=== PATIENT | male | born 1990 | race Caucasian/White ===

== ENCOUNTER 2018-08-29 15:52 | Emergency (ER) | payer OTHER ==
[2018-08-29 16:55] LABS: Basophils % (A) 1 %; Eosinophils # (A) 0.1 k/uL (0-0.7); Eosinophils % (A) 1 %; HCT 42.4 % (39.0-53.0); HGB 14.6 gm/dL (13.0-17.5); Lymphocytes # (A) 1.4 k/uL (1.0-4.8); Lymphocytes % (A) 28 %; MCH 29.9 pg (25.0-35.0); MCHC 34.4 g/dL (31.0-37.0); Mean Platelet Volume 6.6; Monocytes # (A) 0.3 k/uL (0-1.0); Monocytes % (A) 6 %; Neutrophils # (A) 3.2 k/uL (1.3-7.7); Neutrophils % (A) 63 %; Platelet Count 266 k/uL (150-450); RBC 4.87 m/uL (4.30-5.90); RDW 12.4 % (11.5-15.5)
[2018-08-29 16:58] LABS: INR 1.2 (<1.2); Partial Thromboplastin Time 25.3 sec (22.0-30.0); Prothrombin Time 11.3 sec (9.0-12.0)
[2018-08-29 16:59] LABS: ALT 66 U/L (21-72); AST 38 U/L (17-59); Albumin 4.7 g/dL (3.5-5.0); Alkaline Phosphatase 47 U/L (38-126); Amylase 56 U/L (30-110); Anion Gap 8 mmol/L; Blood Urea Nitrogen 14 mg/dL (9-20); Calcium 10.1 mg/dL (8.4-10.2); Carbon Dioxide 27 mmol/L (22-30); Chloride 104 mmol/L (98-107); Glucose 90 mg/dL (74-99); Lipase 155 U/L (23-300); Potassium 4.5 mmol/L (3.5-5.1); Sodium 139 mmol/L (137-145); Total Bilirubin 0.6 mg/dL (0.2-1.3); Total Protein 7.4 g/dL (6.3-8.2)
[2018-08-29 17:10] LABS: Creatine Kinase 45 U/L (55-170)
--- NOTE | 2018-08-29 17:19 | XR ---
EXAMINATION TYPE: XR chest 2V DATE OF EXAM: 08/29/2018 COMPARISON: NONE HISTORY: Chest pain TECHNIQUE: Frontal and lateral views of the chest are obtained. FINDINGS: Heart and mediastinum are normal. Lungs are clear. Diaphragm is normal. Bony thorax appear s normal. Pulmonary vascularity is normal. There is slight anterior wedging of a midthoracic vertebra that is probably developmental. IMPRESSION: Normal chest
[2018-08-29 17:22] LABS: Creatine Kinase MB 0.3 ng/mL (0.0-2.4); Troponin I <0.012 ng/mL (0.000-0.034)
[2018-08-29] MEDS ORDERED: ONDANSETRON ODT 4 MG TAB PO STA (17:31)
[2018-08-29] MEDS ORDERED: ONDANSETRON 4 MG/2 ML VIAL IVP STA (17:55)
[2018-08-29 18:04] VITALS: PULSE 78
--- NOTE | 2018-08-29 18:22 | ED ---
Chest Pain HPI - General Chief Complaint: Chest Pain Stated Complaint: Nausea/chest pain Time Seen by Provider: 08/29/18 16:17 Source: patient Mode of arrival: ambulatory Limitations: no limitations - History of Present Illness Initial Comments: 28-year-old male past history of Crohn's disease presenting today for chief complaint of left-sided chest discomfort and nausea 3 weeks. Patient states that he has had chronic nausea for 12 years since his diagnosis Crohn's, he states that he feels as though as been increasing for the past 3 weeks. Patient denies any vomiting, emesis, melena, hematochezia. Patient denies any diarrhea he states he had a formed bowel movement at 2 PM this afternoon. Patient admits to dull abdominal pain however he states that he has chronic abdominal pain he denies any significant changes in his pain today. Patient states that for the past few weeks he has had acid reflux and was started on omeprazole by Dr. Kauffman who he saw on the 07 of August. Patient states that this sensation would come and go usually with meals and the pain was in his chest. Patient states that this sensation has been increasing for the past few days and he was concerned when it felt more constant so he presented today for evaluation. He denies a pattern with ambulation. But does note that seems to happen most with consumption of food. Upon arrival patient's vital signs stable. Patient appears well, nontoxic and in no acute distress. As a dyspnea , dyspnea on exertion, headache, dizziness, visual changes, upper extremity paresthesias, lower extremity edema, jaw pain, back pain, syncope, hemoptysis, calf pain, recent travel, history of cancer, history of blood clot, recent surgery or any other associated symptoms. - Related Data Home Medications Medication Instructions Recorded Confirmed ALPRAZolam [Xanax] 0.5 mg PO BID PRN 08/29/18 08/29/18 Acetaminophen Tab [Tylenol Tab] 500 - 1,000 mg PO Q6HR PRN 08/29/18 08/29/18 Adalimumab [Humira Pen] 40 mg SQ Q14D 08/29/18 08/29/18 Ascorbic Acid [Vitamin C] 500 mg PO DAILY 08/29/18 08/29/18 Calc/Mag/Zin/D 1 tab PO DAILY 08/29/18 08/29/18 Calcium Carbonate [Tums] 500 mg PO TID PRN 08/29/18 08/29/18 Cholecalciferol (Vitamin D3) 2,000 unit PO DAILY 08/29/18 08/29/18 [Vitamin D3] Cholestyramine (with Sugar) 2 - 4 gm PO DAILY PRN 08/29/18 08/29/18 [Questran] Cyanocobalamin (Vitamin B-12) 1,000 mcg PO DAILY 08/29/18 08/29/18 [Vitamin B-12] Hydrocortisone Cream 1 applic TOPICAL QID PRN 08/29/18 08/29/18 [Hydrocortisone 2.5% Cream] Loratadine [Claritin] 10 mg PO DAILY PRN 08/29/18 08/29/18 Multivitamin [Multivitamins Adult 1 tab PO DAILY 08/29/18 08/29/18 Gummies] Omeprazole 20 mg PO DAILY 08/29/18 08/29/18 Prochlorperazine [Compazine] 5 mg PO BID PRN 08/29/18 08/29/18 Allergies Allergy/AdvReac Type Severity Reaction Status Date / Time amoxicillin Allergy Rash/Hives Verified 08/29/18 16:51 clindamycin [From Cleocin] Allergy Rash/Hives Verified 08/29/18 16:51 mesalamine [From Pentasa] Allergy Unknown Verified 08/29/18 16:51 trazodone Allergy Anaphylaxis Verified 08/29/18 16:51 azithromycin AdvReac Nausea & Verified 08/29/18 16:51 Vomiting Review of Systems ROS Statement: Those systems with pertinent positive or pertinent negative responses have been documented in the HPI. ROS Other: All systems not noted in ROS Statement are negative. Constitutional: Denies: fever, chills, night sweats ENT: Denies: ear pain, throat pain Respiratory: Denies: cough, dyspnea, wheezes, hemoptysis, stridor Cardiovascular: Reports: chest pain. Denies: palpitations, dyspnea on exertion , orthopnea, edema Endocrine: Denies: fatigue Gastrointestinal: Reports: abdominal pain (Chronic abdominal pain), nausea ( Chronic nausea with increased 3 weeks), diarrhea (On-and-off due to Crohn's disease). Denies: vomiting, constipation, hematemesis, melena, hematochezia Genitourinary: Denies: urgency, dysuria Musculoskeletal: Denies: back pain Skin: Denies: rash, lesions Neurological: Denies: headache, weakness, numbness, paresthesias, confusion EKG Findings - EKG Comments: EKG Findings:: A 12-lead EKG was performed and shows the following: Rate is 85, and rhythm is normal sinus. There are normal QRS complexes and normal R-wave progression. ST segments have no elevation or depression, and AZ segments appear normal. AZ interval 136ms, QRS ratio 86 ms, QT/QTC 342/406 ms. There are no changes concerning forACS, normal EKG. Past Medical History Past Medical History: GERD/Reflux Additional Past Medical History / Comment(s): chrones History of Any Multi-Drug Resistant Organisms: None Reported Past Surgical History: Bowel Resection Past Psychological History: No Psychological Hx Reported Smoking Status: Never smoker Past Alcohol Use History: None Reported Past Drug Use History: None Reported General Exam - General Exam Comments Initial Comments: General: The patient is awake and alert, in no distress, and does not appear acutely ill. Eye: Pupils are equal, round and reactive to light, extra-ocular movements are intact. No nystagmus. There is normal conjunctiva bilaterally. No signs of icterus. Ears, nose, mouth and throat: There are moist mucous membranes and no oral lesions. Neck: The neck is supple, there is no tenderness or JVD. Cardiovascular: There is a regular rate and rhythm. No murmur, rub or gallop is appreciated. Respiratory: Lungs are clear to auscultation, respirations are non-labored, breath sounds are equal. No wheezes, stridor, rales, or rhonchi. No friction rubs. Gastrointestinal: No noted diaphoresis, jaundice, pallor, protecting postures or squirming. Symmetrical pigmentation of abdomen without signs of inflammation, or striae. Scar midline just inferior to umbilicus. Umbilicus mildline, inverted without swelling. No dilated veins. Abdomen contour Point, no noted abdominal distention. No visible masses. No peristalsis, aortic pulsations, or ventral hernia. Bowel sounds audible in all 4 quadrants, unremarkable. Mild diffuse tenderness to deep palpation. No tenderness to light palpation-no rigidity, guarding or protective posturing.. Liver edge, not palpable. Spleen edge, right and left kidney not palpable. Superior bladder margin non-tender. Special Testing: Negative [place], Rovsing, McBurney, [place], cutaneous hyperesthesia. Negative Heel Jar test/popeye sign. No CVA tenderness. Digital rectal exam skin tag midline at 12 o'clock position, no palpable hemorroid or gross red blood. Negative null turners or cullens sign Musculoskeletal: Normal ROM, no tenderness. Strength 5/5. Sensation intact. DP and radial pulses equal bilaterally 2+. Neurological: A&O x 3. CN II-XII intact, There are no obvious motor or sensory deficits. Coordination appears grossly intact. Speech is normal. Skin: Skin is warm and dry and no rashes or lesions are noted. Negative Homans , no pain to palpation along the deep venous system. Psychiatric: Cooperative, appropriate mood & affect, normal judgment. Limitations: no limitations Course Vital Signs 08/29/18 08/29/18 08/29/18 16:03 16:15 18:04 Temperature 98.6 F Pulse Rate 103 H 78 Pulse Rate [ 88 [employer] ] Respiratory 18 18 Rate Blood Pressure 128/87 120/77 O2 Sat by Pulse 98 98 Oximetry 08/29/18 19:02 Temperature 97.7 F Pulse Rate 78 Pulse Rate [ [employer]ic ] Respiratory 14 Rate Blood Pressure 126/77 O2 Sat by Pulse 99 Oximetry Chest Pain MDM - MDM Heart score 0. Patient is in no acute distress, cardiac profile negative, troponins negative, EKG within normal limits. Disposition Clinical Impression: Nausea, Non-cardiac chest pain Disposition: HOME SELF-CARE Condition: Good Instructions: Chest Pain (ED) Additional Instructions: Please use medication as discussed. Please follow-up with Dr Kauffman in the next 1 -2 days. Please return to emergency room if the symptoms increase or worsen or for any other concerns. Referrals: Bryanna Herman MD [Primary Care Provider] - 1-2 days Maulik Kauffman MD [STAFF PHYSICIAN] - 1-2 days Time of Disposition: 18:21
[2018-08-29 19:03] VITALS: BP 126/77; RESP 14; TEMP 97.7
== END 2018-08-29 19:00 | disposition home or self-care (01) ==
LOC: EC 15:52
DX: R07.9 Chest pain, unspecified (principal); R11.0 Nausea; R10.9 Unspecified abdominal pain; K21.9 Gastro-esophageal reflux disease without esophagitis; K50.90 Crohn's disease, unspecified, without complications; Z98.890 Other specified postprocedural states; Z79.899 Other long term (current) drug therapy; Z88.0 Allergy status to penicillin; Z88.1 Allergy status to other antibiotic agents; Z88.8 Allergy status to other drugs, medicaments and biological substances
CPT/HCPCS: 36415; 93005; 80053; 82150; 82550; 82553; 83690; 83735; 84484; 85025; 85610; 85730; 82272; 71046; 99285; 96374; J2405

== ENCOUNTER 2018-09-24 08:23 | Day surgery (SDC) | payer OTHER ==
[2018-09-18 15:21] VITALS: BMI 18.1
[~2018-09-24 08:23] MED LIST: LACTATED RINGERS 1,000 ML IV SCH
[2018-09-24 09:16] VITALS: RESP 16; TEMP 98
[2018-09-24] MEDS ORDERED: LIDOCAINE 1% 20 ML VIAL (10MG/ML) FOR IV START INTRADERMA ONE (09:20)
[2018-09-24] MEDS ORDERED: PROPOFOL 10 MG/ML 20 ML VIAL IV ONE (11:09)
--- NOTE | 2018-09-24 11:23 | P.PCN ---
Date of Procedure: 09/24/18 Procedure(s) Performed: Procedures: 1. Esophagogastroduodenoscopy and biopsy. 2. Colonoscopy and biopsy. Preoperative diagnosis: 1. Reflux symptoms, nausea and atypical chest pain. 2. History of Crohn's ileocolitis on biologic therapy. Postoperative diagnosis: 1. Small sliding hiatal hernia with no obvious esophagitis or complicated reflux disease. 2. Mild antral gastritis. 3. S/P ileocecal resection with mild inflammatory changes around the anastomosis area. Preparation: HalfLytely prep. Sedation: Was provided by anesthesia. Brief clinical history: The patient is a 28-year-old male who was diagnosed with Crohn's ileocolitis at age 17 and required ileocolonic resection in 2008. He required biologic therapy with Remicade until February 2011 which he stopped and remained in remission off any medications until around October 2015. The patient was started on humira in the fall of 2016. The patient continues to have issues with nausea and chest discomfort and he feels that his symptoms has worsened recently and was in the emergency room August 29 for nausea and chest discomfort. He is on symptomatic treatment with Tums and Gas-X, Compazine and Zofran. Weight stable. Stools variable in consistency and his last colonoscopy was in October 2015. This evaluation is to assess for the activity of his Crohn's disease and to rule out peptic ulcer disease complicated reflux disease or other pathology. Procedure: With the patient on his left lateral decubitus position and after informed consent and adequate sedation, I passed the Olympus-GIF 160 video upper endoscope through the cricopharyngeus down the esophagus. There was a small sliding hiatal hernia but no obvious esophagitis or complicated reflux disease. The endoscope was then passed into the stomach which was insufflated with air and inspected in detail including the retroflex view in the cardia. There was some mottling and erythema in the antrum but no ulcers or erosions. Pyloric channel, duodenal bulb, post bulbar area and descending duodenum appeared within normal limits. Because of his symptoms, I obtained biopsies from the duodenum, antrum and esophagus then the endoscope was withdrawn and I proceeded with the colonoscopy. Perianal area did not show any fissures or fistulas. There was prominent skin tags. No masses were felt on digital rectal examination or strictures. The Olympus CFH 190L video colonoscope was then inserted in the rectum in the usual fashion and advanced to the right colon. The area of the resection and anastomosis was noted. There were few small isolated aphthous-like ulcerations in the vicinity of the anastomosis on the small intestinal side, otherwise, the small intestine did not show any ulcers or stenosis. The colon appeared completely normal. I obtained biopsies from the uninvolved terminal ileum and I took biopsies of the aphthous ulcerations close to the anastomosis on the small intestinal side of the resection then I retroflexed the endoscope in the rectum before the endoscope was withdrawn. The patient tolerated the procedure well. Plan: I discussed the findings with the patient and his mother. Will await biopsy results and make further adjustments on his regimen. I will keep you updated on his progress.
[2018-09-24] MEDS ORDERED: ONDANSETRON 4 MG/2 ML VIAL IVP ONE (11:26)
[2018-09-24 11:31] VITALS: BP 124/79; PULSE 71
== END 2018-09-24 12:25 | disposition home or self-care (01) ==
LOC: ORWHC2ENDO 08:23
DX: K29.50 Unspecified chronic gastritis without bleeding (principal); K21.0 Gastro-esophageal reflux disease with esophagitis; R59.0 Localized enlarged lymph nodes; K44.9 Diaphragmatic hernia without obstruction or gangrene; K64.4 Residual hemorrhoidal skin tags; K91.89 Other postprocedural complications and disorders of digestive system; Y83.2 Surgical operation with anastomosis, bypass or graft as the cause of abnormal reaction of the patient, or of later complication, without mention of misadventure at the time of the procedure; Y92.9 Unspecified place or not applicable; K50.80 Crohn's disease of both small and large intestine without complications; K52.9 Noninfective gastroenteritis and colitis, unspecified; K63.3 Ulcer of intestine; Z90.49 Acquired absence of other specified parts of digestive tract; Z98.0 Intestinal bypass and anastomosis status; K21.9 Gastro-esophageal reflux disease without esophagitis; F41.9 Anxiety disorder, unspecified; F32.9 Major depressive disorder, single episode, unspecified; Z79.899 Other long term (current) drug therapy; Z88.1 Allergy status to other antibiotic agents; Z88.8 Allergy status to other drugs, medicaments and biological substances
CPT/HCPCS: 88305; 45380; 43239; J2405; J2704

== ENCOUNTER → 2019-10-18 | Outpatient (CLI) | payer OTHER ==
--- NOTE | 2019-10-18 09:21 | MR ---
EXAMINATION TYPE: MR brain wo/w con DATE OF EXAM: 10/18/2019 8:57 AM COMPARISON: None. HISTORY: Seizures TECHNIQUE: Multiplanar, multiecho imaging of the brain was obtained with and without intravenous adm inistration of 6 mL intravenous Gadavist. FINDINGS: Midline structures are unremarkable. There is a normal craniocervical junction. Echoplanar diffusion imaging is normal. There are normal vascular flow voids. The orbits are unremarkable. There is no evidence of a CP angle mass lesion. No acute focal lesion, mass effect or midline shift is seen. I do not see evidence of intracranial bl ood. Following intravenous administration of gadolinium, I do not see evidence of abnormal enhancement. IMPRESSION: NORMAL MRI OF THE BRAIN.
== END | disposition home or self-care (01) ==
LOC: RADMRIMAIN 08:01
PROVIDERS: ATTEND Psychiatry & Neurology Neurology
DX: R56.9 Unspecified convulsions (principal)
CPT/HCPCS: 70553; A9585

== ENCOUNTER → 2020-04-12 | Outpatient (CLI) | payer OTHER ==
[2020-04-12 13:06] LABS: Basophils % (A) 0 %; Eosinophils # (A) 0.1 k/uL (0-0.7); Eosinophils % (A) 1 %; HCT 46.6 % (39.0-53.0); HGB 15.8 gm/dL (13.0-17.5); Lymphocytes # (A) 1.4 k/uL (1.0-4.8); Lymphocytes % (A) 29 %; MCH 31.2 pg (25.0-35.0); MCHC 33.9 g/dL (31.0-37.0); Mean Platelet Volume 7.2; Monocytes # (A) 0.4 k/uL (0-1.0); Monocytes % (A) 8 %; Neutrophils # (A) 2.8 k/uL (1.3-7.7); Neutrophils % (A) 59 %; Platelet Count 255 k/uL (150-450); RBC 5.07 m/uL (4.30-5.90); RDW 12.2 % (11.5-15.5); WBC 4.8 k/uL (3.8-10.6)
[2020-04-12 20:37] LABS: African American GFR (CKD) 147.8 (60.0-200.0); Albumin/Globulin Ratio 2.27 (1.60-3.17); Anion Gap 9.2 mmol/L (4.00-12.00); BUN/Creat Ratio 18.57 Ratio (12.00-20.00); Calcium 9.9 mg/dL (8.7-10.3); Carbon Dioxide 28.8 mmol/L (21.6-31.8); Globulin 2.2 g/dL (1.6-3.3); Non-African American GFR(CKD) 127.5 (60.0-200.0); Potassium 4.2 mmol/L (3.5-5.5); Total Bilirubin 0.4 mg/dL (0.3-1.2); Total Protein 7.2 g/dL (6.2-8.2); Valproic Acid (Depakene) 24.9 ug/mL (50.0-100.0)
== END | disposition home or self-care (01) ==
LOC: LABWHC1 11:22
PROVIDERS: ATTEND Nurse Practitioner
DX: K50.90 Crohn's disease, unspecified, without complications (principal); R74.8 Abnormal levels of other serum enzymes; G40.209 Localization-related (focal) (partial) symptomatic epilepsy and epileptic syndromes with complex partial seizures, not intractable, without status epilepticus
CPT/HCPCS: 36415; 80053; 80164; 80165; 82140; 85025

== ENCOUNTER 2021-01-04 10:52 | Emergency (ER) | payer OTHER ==
[2021-01-04 11:28] VITALS: TEMP 98.3
[2021-01-04] MEDS ORDERED: ONDANSETRON 4 MG/2 ML VIAL IVP STA (11:45)
[2021-01-04] MEDS ORDERED: SODIUM CHLORIDE 0.9% 1,000 ML IV STA (11:45)
[2021-01-04] MEDS ORDERED: MORPHINE SULFATE 4 MG/ML SYRINGE IV STA (11:45)
[2021-01-04 12:05] LABS: Basophils % (A) 1 %; Eosinophils # (A) 0.1 k/uL (0-0.7); Eosinophils % (A) 2 %; HCT 45.5 % (39.0-53.0); HGB 16.2 gm/dL (13.0-17.5); Lymphocytes # (A) 2.3 k/uL (1.0-4.8); Lymphocytes % (A) 43 %; MCH 31.6 pg (25.0-35.0); MCHC 35.5 g/dL (31.0-37.0); MCV 88.8 fL (80.0-100.0); Mean Platelet Volume 7.2; Monocytes # (A) 0.4 k/uL (0-1.0); Monocytes % (A) 7 %; Neutrophils # (A) 2.5 k/uL (1.3-7.7); Neutrophils % (A) 46 %; Platelet Count 235 k/uL (150-450); RBC 5.12 m/uL (4.30-5.90); RDW 11.8 % (11.5-15.5); WBC 5.4 k/uL (3.8-10.6)
[2021-01-04 12:09] LABS: Appearance,Urine Clear (Clear); Bilirubin,Urine Negative (Negative); Blood,Urine Negative (Negative); Color,Urine Yellow; Glucose,Urine (UA) Negative (Negative); Hyaline Casts,Urine 1 /lpf (0-2); Ketones,Urine Negative (Negative); Leukocyte Esterase,Urine Negative (Negative); Mucus,Urine Many /hpf; Nitrite,Urine Negative (Negative); PH, Urine 5.5 (5.0-8.0); Protein,Urine 1+ (Negative); RBC,Urine <1 /hpf (0-5); Specific Gravity,Urine 1.028 (1.001-1.035); Squamous Epithelial Cell,Urine <1 /hpf (0-4); Urobilinogen,Urine <2.0 mg/dL (<2.0); WBC,Urine 1 /hpf (0-5)
[2021-01-04 12:15] LABS: ALT 67 U/L (4-49); AST 45 U/L (17-59); African American GFR (CKD) >90 (>60 ml/min/1.73 sqM); Albumin 4.8 g/dL (3.5-5.0); Alkaline Phosphatase 66 U/L (38-126); Amylase 56 U/L (30-110); Anion Gap 9 mmol/L; Blood Urea Nitrogen 10 mg/dL (9-20); Calcium 9.9 mg/dL (8.4-10.2); Carbon Dioxide 30 mmol/L (22-30); Chloride 100 mmol/L (98-107); Glucose 96 mg/dL (74-99); Lipase 284 U/L (23-300); Non-African American GFR(CKD) >90 (>60 ml/min/1.73 sqM); Potassium 3.7 mmol/L (3.5-5.1); Sodium 139 mmol/L (137-145); Total Bilirubin 0.4 mg/dL (0.2-1.3); Total Protein 7.5 g/dL (6.3-8.2)
--- NOTE | 2021-01-04 13:04 | CT ---
EXAMINATION TYPE: CT abdomen pelvis w con DATE OF EXAM: 01/04/2021 COMPARISON: None. HISTORY: Abdominal pain. H/O Crohn's disease and colitis CT DLP: 600.4 mGycm, Automated Exposure Control for Dose Reduction was Utilized. CONTRAST: CT scan of the abdomen and pelvis is performed without oral and with IV Contrast, patient injected wi th 100 ml mL of Isovue 300. FINDINGS: LUNG BASES: No significant abnormality is appreciated. LIVER/GB: No significant abnormality is appreciated. PANCREAS: No significant abnormality is seen. SPLEEN: No significant abnormality is seen. ADRENALS: No significant abnormality is seen. KIDNEYS: Symmetric cortical medullary uptake and excretion without hydronephrosis. BOWEL: Suboptimal evaluation of bowel without enteric contrast. Surgical sutures seen at level of cec um. Small bowel feces sign in the terminal ileum or neoterminal ileum. No suspicious wall thickening at this level. No suspicious small or large bowel dilatation. Findings consistent with delayed passag e of ingested material to colonic level. Mild to moderate wall thickening in the rectum is nonspecifi c favor product of poor distention. No significant mesenteric fluid and/or fat stranding or vasa engo rgement. PROSTATE/SEMINAL VESICLES: No gross abnormality seen. LYMPH NODES: No greater than 1cm abdominal or pelvic lymph nodes are appreciated. OSSEOUS STRUCTURES: No significant abnormality is seen. OTHER: No significant additional abnormality is seen. IMPRESSION: No bowel obstruction. No significant acute finding identified
[2021-01-04 13:22] VITALS: BP 124/84; PULSE 90; RESP 16
[2021-01-04] MEDS ORDERED: KETOROLAC 15 MG/ML 1 ML VIAL IVP STA (13:58)
[2021-01-04] MEDS ORDERED: methylPREDNISolone SOD SUCCI 125 MG/2 ML VIAL IV STA (13:58)
--- NOTE | 2021-01-04 13:59 | ED ---
General Adult HPI - General Chief complaint: Abdominal Pain Stated complaint: abd pain Source: patient, RN notes reviewed Mode of arrival: ambulatory - History of Present Illness Initial comments: 30-year-old male presents to the emergency room for abdominal pain. Patient states he has had right lower quadrant abdominal pain that radiates to his groin for the past 4 days. States he has had diarrhea as well with this. Denies any bloody or mucousy stool. Patient states she has had nausea vomiting on and off as well. States the first day he had vomiting but since then has only had nausea. Patient states history of Crohn's. He has not had any fevers at home.Patient has no other complaints at this time including shortness of breath, chest pain, nausea or vomiting, headache, or visual changes. - Related Data Home Medications Medication Instructions Recorded Confirmed Acetaminophen Tab [Tylenol Tab] 1,000 mg PO Q6HR PRN 08/29/18 01/04/21 Adalimumab [Humira Pen] 40 mg SQ Q14D 08/29/18 01/04/21 Ascorbic Acid [Vitamin C] 500 mg PO DAILY PRN 08/29/18 01/04/21 Cholecalciferol (Vitamin D3) 2,000 unit PO DAILY 08/29/18 01/04/21 [Vitamin D3] Cholestyramine (with Sugar) 4 gm PO DAILY PRN 08/29/18 01/04/21 [Questran] Hydrocortisone Cream 1 applic TOPICAL QID PRN 08/29/18 01/04/21 [Hydrocortisone 2.5% Cream] Loratadine [Claritin] 10 mg PO DAILY PRN 08/29/18 01/04/21 Omeprazole [PriLOSEC] 20 mg PO AC-BRKFST 09/18/18 01/04/21 Ondansetron [Zofran] 4 - 8 mg PO Q8H PRN 09/18/18 01/04/21 Dicyclomine [Bentyl] 10 mg PO TID PRN 01/04/21 01/04/21 Divalproex Sodium [Depakote] 500 mg PO HS 01/04/21 01/04/21 FLUoxetine HCL [PROzac] 20 mg PO DAILY 01/04/21 01/04/21 Methylphenidate HCl [Ritalin] 10 mg PO BID@0900,1400 01/04/21 01/04/21 Triamcinolone Acetonide [Nasacort] 1 spray EA NOSTRIL DAILY 01/04/21 01/04/21 Previous Rx's Medication Instructions Recorded predniSONE 50 mg PO DAILY #4 tablet 01/04/21 Allergies Allergy/AdvReac Type Severity Reaction Status Date / Time amoxicillin Allergy Rash/Hives Verified 01/04/21 13:19 clindamycin [From Cleocin] Allergy Rash/Hives Verified 01/04/21 13:19 mesalamine [From Pentasa] Allergy Unknown Verified 01/04/21 13:19 trazodone Allergy Anaphylaxis Verified 01/04/21 13:19 azithromycin AdvReac Nausea & Verified 01/04/21 13:19 Vomiting Review of Systems ROS Statement: Those systems with pertinent positive or pertinent negative responses have been documented in the HPI. ROS Other: All systems not noted in ROS Statement are negative. Past Medical History Past Medical History: GERD/Reflux Additional Past Medical History / Comment(s): chorn's/colitis History of Any Multi-Drug Resistant Organisms: None Reported Past Surgical History: Bowel Resection Past Anesthesia/Blood Transfusion Reactions: Previous Problems w/ Anesthesia Additional Past Anesthesia/Blood Transfusion Reaction / Comment(s): TAKES A LITTLE LONGER TO WAKE UP" Past Psychological History: Anxiety, Depression Smoking Status: Never smoker Past Alcohol Use History: None Reported Past Drug Use History: None Reported - Past Family History Father Family Medical History: Cancer General Exam General appearance: alert, in no apparent distress Head exam: Present: atraumatic, normocephalic, normal inspection Eye exam: Present: normal appearance, PERRL, EOMI. Absent: scleral icterus, conjunctival injection, periorbital swelling ENT exam: Present: normal exam, mucous membranes moist Neck exam: Present: normal inspection, full ROM. Absent: tenderness, meningismus, lymphadenopathy Respiratory exam: Present: normal lung sounds bilaterally Cardiovascular Exam: Present: regular rate, normal rhythm, normal heart sounds. Absent: systolic murmur, diastolic murmur, rubs, gallop, clicks GI/Abdominal exam: Present: soft, tenderness (mild rlq tenderness without guarding for rebound), normal bowel sounds. Absent: distended, guarding, rebound, rigid exam: Present: normal inspection, other (Machelle Rn present as barrel cleaner for exam). Absent: testicular tenderness, urethral discharge, scrotal swelling, vertical testicular lie, circumcision Back exam: Absent: CVA tenderness (R), CVA tenderness (L) Course Vital Signs 01/04/21 01/04/21 01/04/21 11:26 11:52 13:21 Temperature 98.3 F Pulse Rate 105 H 85 90 Respiratory 18 18 16 Rate Blood Pressure 126/88 131/87 124/84 O2 Sat by Pulse 99 98 98 Oximetry Medical Decision Making - Medical Decision Making Vitals are stable. Patient is well-appearing. CBC CMP unremarkable. Urina lysis negative. CT abdomen and pelvis shows no bowel obstruction. No significant acute findings identified. Symptoms could be related to bowel spasm secondary to diarrhea. Patient reevaluated after pain medication and its feels significantly improved. We will start patient on a short burst of steroids. He has an appointment with GI tomorrow. He will return here for any worsening symptoms. - Lab Data Result diagrams: 01/04/21 11:47 01/04/21 11:47 Lab Results 01/04/21 01/04/21 01/04/21 Range/Units 11:47 11:47 11:53 WBC 5.4 (3.8-10.6) k/uL RBC 5.12 (4.30-5.90) m/uL Hgb 16.2 (13.0-17.5) gm/dL Hct 45.5 (39.0-53.0) % MCV 88.8 (80.0-100.0) fL MCH 31.6 (25.0-35.0) pg MCHC 35.5 (31.0-37.0) g/dL RDW 11.8 (11.5-15.5) % Plt Count 235 (150-450) k/uL MPV 7.2 Neutrophils % 46 % Lymphocytes % 43 % Monocytes % 7 % Eosinophils % 2 % Basophils % 1 % Neutrophils # 2.5 (1.3-7.7) k/uL Lymphocytes # 2.3 (1.0-4.8) k/uL Monocytes # 0.4 (0-1.0) k/uL Eosinophils # 0.1 (0-0.7) k/uL Basophils # 0.0 (0-0.2) k/uL Sodium 139 (137-145) mmol/L Potassium 3.7 (3.5-5.1) mmol/L Chloride 100 (98-107) mmol/L Carbon Dioxide 30 (22-30) mmol/L Anion Gap 9 mmol/L BUN 10 (9-20) mg/dL Creatinine 0.71 (0.66-1.25) mg/dL Est GFR (CKD-EPI)AfAm >90 (>60 ml/min/1.73 sqM) Est GFR (CKD-EPI)NonAf >90 (>60 ml/min/1.73 sqM) Glucose 96 (74-99) mg/dL Calcium 9.9 (8.4-10.2) mg/dL Total Bilirubin 0.4 (0.2-1.3) mg/dL AST 45 (17-59) U/L ALT 67 H (4-49) U/L Alkaline Phosphatase 66 (38-126) U/L Total Protein 7.5 (6.3-8.2) g/dL Albumin 4.8 (3.5-5.0) g/dL Amylase 56 (30-110) U/L Lipase 284 (23-300) U/L Urine Color Yellow Urine Appearance Clear (Clear) Urine pH 5.5 (5.0-8.0) Ur Specific [place] 1.028 (1.001-1.035) Urine Protein 1+ H (Negative) Urine Glucose (UA) Negative (Negative) Urine Ketones Negative (Negative) Urine Blood Negative (Negative) Urine Nitrite Negative (Negative) Urine Bilirubin Negative (Negative) Urine Urobilinogen <2.0 (<2.0) mg/dL Ur Leukocyte Esterase Negative (Negative) Urine RBC <1 (0-5) /hpf Urine WBC 1 (0-5) /hpf Ur Squamous Epith Cells <1 (0-4) /hpf Hyaline Casts 1 (0-2) /lpf Urine Mucus Many H (None) /hpf Disposition Clinical Impression: Abdominal pain Disposition: HOME SELF-CARE Condition: Good Instructions (If sedation given, give patient instructions): Abdominal Pain (ED) Additional Instructions: Please take steroid as directed. You were given a dose IV so start the prescription tomorrow. Follow-up with your GI doctor tomorrow. Return to the emergency room for any worsening symptoms. Prescriptions: predniSONE 50 mg PO DAILY #4 tablet Is patient prescribed a controlled substance at d/c from ED?: No Referrals: Bryanna Herman MD [Primary Care Provider] - 1-2 days Time of Disposition: 13:58
== END 2021-01-04 14:15 | disposition home or self-care (01) ==
LOC: EC 10:52
DX: R10.31 Right lower quadrant pain (principal); F32.9 Major depressive disorder, single episode, unspecified; K21.9 Gastro-esophageal reflux disease without esophagitis; F41.9 Anxiety disorder, unspecified; Z79.899 Other long term (current) drug therapy; Z79.52 Long term (current) use of systemic steroids
CPT/HCPCS: 36415; 80053; 82150; 83690; 85025; 81001; 74177; 99284; 96374; 96375; 96361; J2270; J2930; J2405; J1885; Q9967

== ENCOUNTER → 2021-06-27 | Outpatient (CLI) | payer OTHER ==
[2021-06-27 16:36] LABS: T4, Free (Free Thyroxine) 1.1 ng/dL (0.80-1.80)
== END | disposition home or self-care (01) ==
LOC: LABWHC1 08:49
PROVIDERS: ATTEND Internal Medicine
DX: R00.2 Palpitations (principal); R53.82 Chronic fatigue, unspecified; R61 Generalized hyperhidrosis
CPT/HCPCS: 36415; 82024; 82533; 83835; 84439; 84443

== ENCOUNTER 2022-01-03 10:38 | Day surgery (SDC) | payer OTHER ==
[2021-12-30 13:15] VITALS: BMI 20.6
[~2022-01-03 10:38] MED LIST changes: +LIDOCAINE 1% (10MG/ML) FOR IV START INTRADERMA PRN
[2022-01-03 11:01] VITALS: TEMP 97.7
[2022-01-03] MEDS ORDERED: PROPOFOL 10 MG/ML 20 ML VIAL IV ONE (11:25)
[2022-01-03] MEDS ORDERED: LIDOCAINE 1% INJ 10MG/ML (20 ML MDV) ONE (11:25)
--- NOTE | 2022-01-03 11:46 | P.PCN ---
Date of Procedure: 01/03/22 Procedure(s) Performed: BRIEF HISTORY: Patient is a 31-year-old pleasant white male with history of Crohn's ileocolitis diagnosed at age 61. He status post TI resection in 2019. He is currently maintained on Humira injections every 2 weeks. He is scheduled for an elective colonoscopy as a part of surveillance of long-standing history of procedure colitis. PROCEDURE PERFORMED: Colonoscopy with biopsy. PREOPERATIVE DIAGNOSIS: Long-standing history of Crohn's ileocolitis. IV sedation per Anesthesia. PROCEDURE: After informed consent was obtained, the patient, was brought into the endoscopy unit. IV sedation was administered by Anesthesia under continuous monitoring. Digital rectal examination was normal. Initially the Olympus CF-160 flexible video colonoscope was then inserted in the rectum, gradually advanced into the right colon with a liquid anastomosis was visualized and appeared pat ent and normal. The distal ileum was intubated and 20 cm visualized and appeared normal. Mucosa of the ascending colon, transverse colon, descending colon, sigmoid colon, and rectum appeared normal. Biopsies were done from the anastomosis to rectum at every 10 cm into well to rule out dysplasia. Retroflexion was performed in the rectum and no lesions were seen. The patient tolerated the procedure well. IMPRESSION: Normal-appearing colon from rectum to right side of the mucosa anastomosis with no evidence of active colitis or colorectal neoplasia RECOMMENDATIONS: Findings of this examination were discussed with the patient as well as his family. He was advised to follow with the biopsy results. He will continue with Humira injections every 2 weeks. If the biopsies do not show any evidence of dysplasia, he can have a repeat colonoscopy every 2 years..
[2022-01-03 12:09] VITALS: RESP 16
[2022-01-03 12:28] VITALS: BP 100/66; PULSE 70
== END 2022-01-03 12:40 | disposition home or self-care (01) ==
LOC: ORWHC2ENDO 10:38
PROVIDERS: ATTEND Internal Medicine Gastroenterology
DX: K50.80 Crohn's disease of both small and large intestine without complications (principal); G40.909 Epilepsy, unspecified, not intractable, without status epilepticus
CPT/HCPCS: 45380; 88305; J2001; J2704

== ENCOUNTER → 2023-04-21 | Outpatient (CLI) | payer OTHER ==
[2023-04-21 23:04] LABS: Basophils # (A) 0.03 X 10*3/uL (0.00-0.10); Basophils % (A) 0.5 %; Eosinophils # (A) 0.04 X 10*3/uL (0.04-0.35); Eosinophils % (A) 0.7 %; HCT 44.8 % (39.6-50.0); HGB 15.1 d/dL (12.0-15.0); Lymphocytes # (A) 2.06 X 10*3/uL (0.90-5.00); Lymphocytes % (A) 34.2 %; MCH 30.1 pg (27.0-32.0); MCHC 33.7 d/dL (32.0-37.0); MCV 89.4 FL (80.0-97.0); Monocytes # (A) 0.58 X 10*3/uL (0.20-1.00); Monocytes % (A) 9.6 %; NRBC Per 100 WBC 0 X 10*3/uL (0.00-0.01); Neutrophils % (A) 54.7 %; Platelet Count 262 X 10*3/uL (140-440); RBC 5.01 X 10*6/uL (4.40-5.60); RDW 11.8 % (11.5-14.5); WBC 6.03 X 10*3/uL (4.50-10.00)
[2023-04-21 23:10] LABS: ALT 119 U/L (10-49); AST 47 U/L (14-35); Albumin 5.1 d/dL (3.8-4.9); Albumin/Globulin Ratio 2.22 Ratio (1.60-3.17); Alkaline Phosphatase 97 U/L (41-126); BUN/Creat Ratio 10.12 Ratio (12.00-20.00); Blood Urea Nitrogen 8.1 mg/dL (9.0-27.0); Calcium 9.9 mg/dL (8.7-10.3); Carbon Dioxide 26.3 mmol/L (21.6-31.8); Chloride 98 mmol/L (96-109); Globulin 2.3 d/dL (1.6-3.3); Glucose 88 mg/dL (70-110); Sodium 142 mmol/L (135-145); Total Bilirubin 0.6 mg/dL (0.3-1.2); Total Protein 7.4 d/dL (6.2-8.2); Valproic Acid (Depakene) 21.2 UG/ML (50.0-100.0)
== END | disposition home or self-care (01) ==
LOC: LABWHC1 11:09
PROVIDERS: ATTEND Psychiatry & Neurology Neurology
DX: G40.209 Localization-related (focal) (partial) symptomatic epilepsy and epileptic syndromes with complex partial seizures, not intractable, without status epilepticus (principal); K50.90 Crohn's disease, unspecified, without complications
CPT/HCPCS: 36415; 80053; 80164; 80165; 85025

== ENCOUNTER → 2023-09-12 | Outpatient (CLI) | payer OTHER ==
[2023-09-13 02:54] LABS: Basophils # (A) 0.02 X 10*3/uL (0.00-0.10); Basophils % (A) 0.4 %; Eosinophils # (A) 0.05 X 10*3/uL (0.04-0.35); Eosinophils % (A) 0.9 %; HCT 44.9 % (39.6-50.0); HGB 15.2 g/dL (13.0-17.0); Lymphocytes # (A) 1.59 X 10*3/uL (0.90-5.00); Lymphocytes % (A) 28.6 %; MCH 30.7 pg (27.0-32.0); MCHC 33.9 g/dL (32.0-37.0); MCV 90.7 FL (80.0-97.0); Mean Platelet Volume 10.6 FL (9.5-12.2); Monocytes # (A) 0.45 X 10*3/uL (0.20-1.00); Monocytes % (A) 8.1 %; NRBC Per 100 WBC 0 X 10*3/uL (0.00-0.01); Neutrophils # (A) 3.39 X 10*3/uL (1.80-7.70); Neutrophils % (A) 61.1 %; Platelet Count 282 X 10*3/uL (140-440); RBC 4.95 X 10*6/uL (4.40-5.60); RDW 11.9 % (11.5-14.5); WBC 5.55 X 10*3/uL (4.50-10.00)
[2023-09-13 03:38] LABS: ALT 67 U/L (10-49); AST 27 U/L (14-35); Albumin 4.9 g/dL (3.8-4.9); Albumin/Globulin Ratio 2.23 Ratio (1.60-3.17); Alkaline Phosphatase 91 U/L (41-126); BUN/Creat Ratio 20.88 Ratio (12.00-20.00); Blood Urea Nitrogen 16.7 mg/dL (9.0-27.0); Calcium 10.3 mg/dL (8.7-10.3); Carbon Dioxide 27.8 mmol/L (21.6-31.8); Chloride 104 mmol/L (96-109); Globulin 2.2 g/dL (1.6-3.3); Glucose 84 mg/dL (70-110); Potassium 4.6 mmol/L (3.5-5.5); Sodium 142 mmol/L (135-145); Total Bilirubin 0.3 mg/dL (0.3-1.2); Total Protein 7.1 g/dL (6.2-8.2)
== END | disposition home or self-care (01) ==
LOC: LABWHC1 15:34
PROVIDERS: ATTEND Internal Medicine Gastroenterology
DX: Z00.00 Encounter for general adult medical examination without abnormal findings (principal); K50.90 Crohn's disease, unspecified, without complications; G40.209 Localization-related (focal) (partial) symptomatic epilepsy and epileptic syndromes with complex partial seizures, not intractable, without status epilepticus
CPT/HCPCS: 36415; 80053; 85025

== ENCOUNTER → 2024-04-23 | Outpatient (CLI) | payer OTHER ==
[2024-04-23 18:27] LABS: Basophils # (A) 0.03 X 10*3/uL (0.00-0.10); Basophils % (A) 0.5 %; Eosinophils # (A) 0.05 X 10*3/uL (0.04-0.35); Eosinophils % (A) 0.8 %; HCT 43.4 % (39.6-50.0); HGB 15.1 g/dL (13.0-17.0); Lymphocytes # (A) 1.49 X 10*3/uL (0.90-5.00); Lymphocytes % (A) 24.4 %; MCH 30.4 pg (27.0-32.0); MCHC 34.8 g/dL (32.0-37.0); MCV 87.5 FL (80.0-97.0); Mean Platelet Volume 9.9 FL (9.5-12.2); Monocytes # (A) 0.51 X 10*3/uL (0.20-1.00); Monocytes % (A) 8.4 %; NRBC Per 100 WBC 0 X 10*3/uL (0.00-0.01); Neutrophils # (A) 3.98 X 10*3/uL (1.80-7.70); Neutrophils % (A) 65.2 %; Platelet Count 280 X 10*3/uL (140-440); RBC 4.96 X 10*6/uL (4.40-5.60); RDW 12.1 % (11.5-14.5)
[2024-04-23 21:35] LABS: BUN/Creat Ratio 16.25 Ratio (12.00-20.00); Carbon Dioxide 22.5 mmol/L (21.6-31.8); Chloride 103 mmol/L (96-109); Glucose 102 mg/dL (70-110); Potassium 3.9 mmol/L (3.5-5.5); Sodium 142 mmol/L (135-145)
[2024-04-23 21:36] LABS: ALT 95 U/L (10-49); AST 43 U/L (14-35); Albumin/Globulin Ratio 2.17 Ratio (1.60-3.17); Alkaline Phosphatase 103 U/L (41-126); Globulin 2.3 g/dL (1.6-3.3); Total Bilirubin 0.5 mg/dL (0.3-1.2); Total Protein 7.3 g/dL (6.2-8.2)
== END | disposition home or self-care (01) ==
LOC: LABWHC1 14:22
PROVIDERS: ATTEND Internal Medicine Gastroenterology
DX: K50.90 Crohn's disease, unspecified, without complications (principal)
CPT/HCPCS: 36415; 80053; 85025

== ENCOUNTER 2024-06-17 06:30 | Day surgery (SDC) | payer OTHER ==
[2024-06-17] MEDS ORDERED: LACTATED RINGERS 1,000 ML BAG ONE (10:05)
[2024-06-17] MEDS ORDERED: PROPOFOL 10 MG/ML 20 ML VIAL IV ONE (10:21)
[2024-06-17] MEDS ORDERED: LIDOCAINE 1% INJ 10MG/ML (20 ML MDV) ONE (10:21)
--- NOTE | 2024-06-20 15:56 | PCN ---
PROCEDURE NOTE REQUESTING PHYSICIAN: Dr. Bryanna Charlton. INDICATIONS FOR PROCEDURE: The patient is a 34-year-old pleasant white male scheduled for elective colonoscopy as a part of screening for longstanding history of Crohn's ileocolitis, diagnosed at the age of 17. The patient is status post TI resection in 2019. He is presently maintained on Humira injections every 2 weeks. Last colonoscopy was 2 years ago. He is scheduled for surveillance colonoscopy today. PROCEDURE PERFORMED: Colonoscopy with random biopsies. PREOPERATIVE DIAGNOSES: Screening for colon cancer, long-standing history of Crohn's ileocolitis. ANESTHESIA: IV sedation per Anesthesia. DESCRIPTION OF PROCEDURE: After informed consent was obtained from the patient, he was brought into the endoscopy unit. IV conscious sedation was administered by Anesthesia and continuous monitoring. Initial digital rectal examination was normal. The Olympus CF-190 video colonoscope was inserted into the rectum and gradually advanced into the right colon where the ileocolic anastomosis was visualized and appeared normal. The ileocolic anastomosis was widely patent. There was no recurrent Crohn's noted. The scope was advanced into the distal ileum, 20 cm visualized and appeared normal. The transverse colon, descending colon, sigmoid colon, and rectum appeared normal. There was no evidence of active colitis noted. Random biopsies were done at every 10 cm interval, and the patient tolerated the procedure well. IMPRESSION: 1. Normal obtaining ileocolic anastomosis with no evidence of active Crohn disease. 2. Normal-appearing colon up to the ileocolic anastomosis with no evidence of colitis or colorectal neoplasia. RECOMMENDATIONS: Findings of this examination were discussed with the patient as well as his family. He was advised to follow up with biopsy results and continue with Humira q.2 weeks and repeat the colonoscopy in 2 years. MMODL / IJN: [id number] /
== END 2024-06-17 11:34 ==
LOC: ORWHC2ENDO 06:30
PROVIDERS: ATTEND Internal Medicine Gastroenterology
DX: Z12.11 Encounter for screening for malignant neoplasm of colon (principal); K50.80 Crohn's disease of both small and large intestine without complications; G43.909 Migraine, unspecified, not intractable, without status migrainosus; Z88.0 Allergy status to penicillin; Z88.8 Allergy status to other drugs, medicaments and biological substances; Z79.899 Other long term (current) drug therapy
CPT/HCPCS: 45380; 88305

== ENCOUNTER → 2024-10-15 | Outpatient (CLI) | payer OTHER ==
[2024-10-15 18:33] LABS: Basophils # (A) 0.03 X 10*3/uL (0.00-0.10); Basophils % (A) 0.5 %; Eosinophils # (A) 0.07 X 10*3/uL (0.04-0.35); Eosinophils % (A) 1.3 %; HCT 43.6 % (39.6-50.0); HGB 14.9 g/dL (13.0-17.0); Lymphocytes # (A) 1.75 X 10*3/uL (0.90-5.00); Lymphocytes % (A) 31.8 %; MCH 30.5 pg (27.0-32.0); MCHC 34.2 g/dL (32.0-37.0); MCV 89.3 FL (80.0-97.0); Mean Platelet Volume 9.8 FL (9.5-12.2); Monocytes # (A) 0.57 X 10*3/uL (0.20-1.00); Monocytes % (A) 10.3 %; NRBC Per 100 WBC 0 X 10*3/uL (0.00-0.01); Neutrophils # (A) 3.01 X 10*3/uL (1.80-7.70); Neutrophils % (A) 54.6 %; Platelet Count 291 X 10*3/uL (140-440); RBC 4.88 X 10*6/uL (4.40-5.60); RDW 11.8 % (11.5-14.5); WBC 5.51 X 10*3/uL (4.50-10.00)
[2024-10-15 18:53] LABS: Hepatitis B Surface Antigen Nonreactive (Nonreactive); Hepatitis C IgG Antibody Nonreactive (Nonreactive)
[2024-10-15 18:55] LABS: % Iron Saturation 27.82 (15.00-50.00); ALT 65 U/L (10-49); AST 32 U/L (14-35); Albumin 4.7 g/dL (3.8-4.9); Albumin/Globulin Ratio 2.14 Ratio (1.60-3.17); Alkaline Phosphatase 84 U/L (41-126); BUN/Creat Ratio 14.38 Ratio (12.00-20.00); Blood Urea Nitrogen 11.5 mg/dL (9.0-27.0); Calcium 9.6 mg/dL (8.7-10.3); Carbon Dioxide 23.9 mmol/L (21.6-31.8); Chloride 100 mmol/L (96-109); Globulin 2.2 g/dL (1.6-3.3); Glucose 91 mg/dL (70-110); Iron 101 UG/DL (65-175); Potassium 4.2 mmol/L (3.5-5.5); Sodium 137 mmol/L (135-145); Total Bilirubin 0.3 mg/dL (0.3-1.2); Total Iron Binding Capacity 363 UG/DL (228-460); Total Protein 6.9 g/dL (6.2-8.2)
[2024-10-15 19:17] LABS: Ceruloplasmin 22.1 mg/dL (20.0-60.0)
[2024-10-16 09:54] LABS: Protein, Total 6.9 g/dL (6.2-8.2)
[2024-10-16 10:32] LABS: Smooth Muscle Antibody 4 UNITS (<20)
== END | disposition home or self-care (01) ==
LOC: LABWHC1 12:34
PROVIDERS: ATTEND Internal Medicine Gastroenterology
DX: R74.8 Abnormal levels of other serum enzymes (principal); K50.90 Crohn's disease, unspecified, without complications
CPT/HCPCS: 36415; 80053; 81596; 82103; 82390; 82728; 83516; 83540; 83550; 84165; 85025; 86038; 86803; 87340

== ENCOUNTER → 2024-11-27 | Outpatient (CLI) | payer OTHER ==
--- NOTE | 2024-11-27 09:12 | US ---
EXAMINATION TYPE: US abdomen limited DATE OF EXAM: 11/27/2024 COMPARISON: NONE CLINICAL INDICATION: Male, 34 years old with history of R74.8 ABNORMAL SERUM ENZYMES; abn labs, no sy mptoms TECHNIQUE: Grayscale and color Doppler imaging of the right upper quadrant was performed. FINDINGS: EXAM MEASUREMENTS: Liver Length: 15.0 cm Gallbladder Wall: 0.2 cm CBD: 0.6 cm Right Kidney: 9.6 x 4.6 x 4.0 cm Pancreas: wnl Liver: Mild increased echogenicity. No focal lesion. Gallbladder: wnl Evidence for sonographic Gómez's sign: no CBD: Borderline caliber. Right Kidney: wnl IMPRESSION: 1. Mild increased echogenicity of the liver parenchyma suggesting mild fatty infiltration. 2. No gallstones. 3. Borderline dilated bile duct up to 6 mm. Possibly chronic for the patient. Correlate with alkaline phosphatase and bilirubin levels to exclude biliary obstruction. [facility], Workstation: [facility], 11/27/2024 9:10 AM
== END | disposition home or self-care (01) ==
LOC: RADUSWWP 08:32
PROVIDERS: ATTEND Internal Medicine Gastroenterology
DX: K76.9 Liver disease, unspecified (principal); K83.8 Other specified diseases of biliary tract; R74.8 Abnormal levels of other serum enzymes
CPT/HCPCS: 76705

== ENCOUNTER → 2025-04-15 | Outpatient (CLI) | payer OTHER ==
[2025-04-15 18:14] LABS: Basophils # (A) 0.04 X 10*3/uL (0.00-0.10); Basophils % (A) 0.6 %; Eosinophils # (A) 0.03 X 10*3/uL (0.04-0.35); Eosinophils % (A) 0.5 %; HCT 44.6 % (39.6-50.0); HGB 15.3 g/dL (13.0-17.0); Lymphocytes # (A) 1.51 X 10*3/uL (0.90-5.00); Lymphocytes % (A) 24.3 %; MCH 30.5 pg (27.0-32.0); MCHC 34.3 g/dL (32.0-37.0); Mean Platelet Volume 10.2 FL (9.5-12.2); Monocytes # (A) 0.51 X 10*3/uL (0.20-1.00); Monocytes % (A) 8.2 %; NRBC Per 100 WBC 0 X 10*3/uL (0.00-0.01); Neutrophils # (A) 4.07 X 10*3/uL (1.80-7.70); Neutrophils % (A) 65.6 %; Platelet Count 305 X 10*3/uL (140-440); RBC 5.01 X 10*6/uL (4.40-5.60); RDW 11.8 % (11.5-14.5); WBC 6.21 X 10*3/uL (4.50-10.00)
[2025-04-15 18:28] LABS: ALT 92 U/L (10-49); AST 44 U/L (14-35); Albumin 5.1 g/dL (3.8-4.9); Albumin/Globulin Ratio 2.12 Ratio (1.60-3.17); Alkaline Phosphatase 86 U/L (41-126); Blood Urea Nitrogen 17.8 mg/dL (9.0-27.0); Calcium 9.7 mg/dL (8.7-10.3); Carbon Dioxide 23.9 mmol/L (21.6-31.8); Chloride 100 mmol/L (96-109); Globulin 2.4 g/dL (1.6-3.3); Glucose 107 mg/dL (70-110); Potassium 4.3 mmol/L (3.5-5.5); Sodium 139 mmol/L (135-145); Total Bilirubin 0.4 mg/dL (0.3-1.2); Total Protein 7.5 g/dL (6.2-8.2)
== END | disposition home or self-care (01) ==
LOC: LABWHC1 13:40
PROVIDERS: ATTEND Internal Medicine Gastroenterology
DX: K50.90 Crohn's disease, unspecified, without complications (principal)
CPT/HCPCS: 36415; 80053; 85025